=== PATIENT | male | born 1955 | race African-American/Black ===

== ENCOUNTER 2018-05-15 19:37 | Emergency (ER) | payer OTHER ==
[~2018-05-15] VITALS: Ht 182.9 cm; Wt 122.5 kg
[2018-05-15] MEDS ORDERED: AMLODIPINE BESY10 MG ORAL (19:52)
[2018-05-15 20:00] VITALS: BP 148/90
--- NOTE | 2018-05-15 20:08 | Emergency Room Report ---
History of Present Illness General Chief Complaint: Laceration Source: Patient Present Illness HPI Patient was closing door of PO vehicle (electric) when arm got caught. Leg was in path of door and was stabbed by corner. Pain 5/10 now, sharp, not radiate. Able to ambulate. H/O HTN on HCTZ, valasartin and amlodipine. Has edema of legs which is chronic. No calf tenderness. No fevers, DM, CP, dyspnea. Rode motorcycle to work. Unknown last tetanus. Osteoarthritis Allergies: Coded Allergies: No Known Allergies (Unverified , 05/15/18) Patient History Past Medical History: see triage record, other - osteoarthritis Past Surgical History: other - R knee surgeries Social History: Reports: alcohol use; Denies: smoking, drug use Social History Narrative - works for [employer] Reviewed Nursing Documentation: PMH: Agreed; PSxH: Agreed Nursing Documentation-PMH Hx Hypertension: Yes Review of Systems All Other Systems: negative except mentioned in HPI Physical Exam Vital Signs Date Time Temp Pulse Resp B/P (MAP) Pulse Ox O2 Delivery O2 Flow Rate FiO2 05/15/18 19:45 97.8 83 18 155/93 96 Room Air 97.9 Sp02 EP Interpretation: reviewed, normal General Appearance: well appearing, no apparent distress, GCS 15, non-toxic Head: normocephalic, atraumatic Eyes: bilateral eye normal inspection, bilateral eye PERRL ENT: hearing grossly normal, normal voice, moist mucus membranes Neck: full range of motion, supple Respiratory: no respiratory distress, speaking full sentences Cardiovascular #1: edema - trace - + pitting edema bilat legs Cardiovascular #2: 2+ radial (R), 2+ dorsalis pedis (L) - good cap fill Gastrointestinal: normal inspection, overweight Musculoskeletal: back normal, digits/nails normal, gait/station normal, normal range of motion, no calf tenderness, other - Plaza's tendon intact Neurologic: alert, motor strength/tone normal, sensory intact, normal gait Psychiatric: mood/affect normal Skin: laceration - L ankle Procedures Laceration/Wound Repair Laceration/Wound Repair : Consent: Verbal Wound Location: lower extremity Wound's Depth, Shape: linear Wound Length (cm): 3 Wound Explored: clean Irrigated w/ Saline (ccs): 20 Betadine Prep?: Yes Wound Debrided: minimal Wound Repaired With: sutures Suture Size/Type: 4:0, nylon Sterile Dressing Applied?: Yes Splint Applied?: No Patient Tolerated: Well Complications: None Medical Decision Making Diagnostic Impression: Primary Impression: Laceration of ankle Qualified Codes: S91.012A - Laceration without foreign body, left ankle, initial encounter Additional Impression: Edema Qualified Codes: R60.9 - Edema, unspecified ER Course Patient with laceration L ankle. Has edema (on HCTZ). Laceration repair indicated. No tendon involved. Lac clean. Given tylenol. Laceration repaired. Tolerated well. Discussed how edema might hamper wound healing. Stressed elevation of foot. Patient stable for outpatient observation and treatment. Last Vital Signs Date Time Temp Pulse Resp B/P (MAP) Pulse Ox O2 Delivery O2 Flow Rate FiO2 05/15/18 21:33 97.5 05/15/18 21:32 75 18 139/87 98 Room Air Status: improved Disposition: HOME, SELF-CARE Condition: Improved Scripts Bacitracin (Bacitracin) 28.4 Gm Oint...g. 1 APPLIC TOPIC BID, #10 GM Prov: Ruel Ellis M.D. 05/15/18 Ruel Ellis M.D. May 15, 2018 20:08
[2018-05-15] MEDS ORDERED: Tetanus/Diptheria/Pertussis Vaccine 0.5ml Syr IM ONE (20:15)
[2018-05-15] MEDS ORDERED: Lidocaine 1% MPF 10mg/ml 5ml INJ ONE (20:15)
[2018-05-15] MEDS ORDERED: Bacitracin Oint UD TOPIC ONE (20:15)
[2018-05-15] MEDS ORDERED: BACITRACIN15 GM TOPIC (21:13)
[2018-05-15 21:32] VITALS: BP_SYST 139; BP_SYST 148; BP_DIAS 87; BP_DIAS 90
== END 2018-05-15 21:35 | disposition home or self-care (01) ==
LOC: EMR 21:03
DX: S91.012A Laceration without foreign body, left ankle, initial encounter (principal); V48.3XXA Unspecified car occupant injured in noncollision transport accident in nontraffic accident, initial encounter; Y92.89 Other specified places as the place of occurrence of the external cause; Z23 Encounter for immunization; I10 Essential (primary) hypertension
CPT/HCPCS: 90471; 90715; 99283

== ENCOUNTER 2018-05-27 12:16 | Emergency (ER) | payer OTHER ==
[~2018-05-27] VITALS: Ht 188 cm; Wt 126.1 kg
[~2018-05-27 12:16] MED LIST: AMLODIPINE BESY10 MG ORAL; BACITRACIN15 GM TOPIC
--- NOTE | 2018-05-27 12:40 | Emergency Room Report ---
History of Present Illness General Chief Complaint: Wound Recheck/Suture Removal Source: Patient Present Illness HPI 63-year-old male presents for suture removal. States that he was here on May 15 for laceration to his left calf region after a sliding door hit his cause injury. States that his wound has been healing well without any current medications it is here for suture removal without any other physical complaints at this time. Allergies: Coded Allergies: No Known Allergies (Unverified , 05/15/18) Patient History Past Medical History: see triage record Past Surgical History: none Pertinent Family History: none Immunizations: UTD Reviewed Nursing Documentation: PMH: Agreed; PSxH: Agreed Nursing Documentation-PMH Past Medical History: No Stated History Hx Hypertension: Yes Review of Systems All Other Systems: negative except mentioned in HPI Physical Exam Vital Signs Date Time Temp Pulse Resp B/P (MAP) Pulse Ox O2 Delivery O2 Flow Rate FiO2 05/27/18 12:30 98.3 82 18 159/99 95 Room Air 98.2 Sp02 EP Interpretation: reviewed, normal General Appearance: no apparent distress, alert, GCS 15, non-toxic Head: normocephalic, atraumatic Eyes: bilateral eye normal inspection, bilateral eye PERRL ENT: normal ENT inspection Neck: normal inspection Respiratory: normal breath sounds, no respiratory distress Cardiovascular #1: normal capillary refill Musculoskeletal: normal inspection, gait/station normal Neurologic: alert, oriented x3, responsive, sensory intact, speech normal Psychiatric: judgement/insight normal, memory normal, mood/affect normal, no suicidal/homicidal ideation Skin: normal color, no rash, warm/dry, well hydrated, laceration - healed 3cm laceration medial left posterior ankle with 4 nylon sutures intact w/o any erythema, induration, tenderness or drainge. Medical Decision Making PA Attestation Dr. Anderson my supervising physician with whom patient management has been discussed with. Reaction to Intervention: Improved Diagnostic Impression: Primary Impression: Encounter for removal of sutures ER Course Pt. presents to the ED c/o wound check Ddx considered but are not limited to cellulitis, non-healing wound, suture removal, Vital signs: are stable, pt. is afebrile H&PE are most consistent with encounter for suture removal w/o complications ORDERS: none required at this time, the diagnosis is clinical ED INTERVENTIONS: Suture removal x 4 nylon sutures DISCHARGE: At this time pt. is stable for d/c to home. Will provide printed patient care instructions, and any necessary prescriptions. Care plan and follow up instructions have been discussed with the patient prior to discharge. Last Vital Signs Date Time Temp Pulse Resp B/P (MAP) Pulse Ox O2 Delivery O2 Flow Rate FiO2 05/27/18 12:30 98.3 82 18 159/99 95 Room Air 98.2 Status: improved Disposition: HOME, SELF-CARE Condition: Improved Patient Instructions: Suture Removal, Care After Additional Instructions: Keep wound clean and dry. Avoid sun exposure to minimize scarring. Patient advised that they can take a shower or bath, but be sure to pat the area dry with a towel afterward. Patient should come back sooner if they experience any red areas that get bigger, more swollen, have pus draining from wound, or if the site becomes more painful. Sada Rodriguez May 27, 2018 12:39
[2018-05-27 12:56] VITALS: BP 159/99
== END 2018-05-27 12:58 | disposition home or self-care (01) ==
LOC: EMR 12:46
DX: S81.812D Laceration without foreign body, left lower leg, subsequent encounter (principal); I10 Essential (primary) hypertension; Z48.02 Encounter for removal of sutures; W20.8XXD Other cause of strike by thrown, projected or falling object, subsequent encounter
CPT/HCPCS: 99281

== ENCOUNTER 2019-11-30 18:19 | Inpatient (IN) | payer OTHER ==
[~2019-11-30] VITALS: Ht 188 cm; Wt 117.9 kg
--- NOTE | 2019-11-30 18:40 | NUR ---
ED Nurse Note: Pt ambulated to ED d/t possible acid reflux since friday morning. Pt complains of abdominal pain; n/v. Placed on bed and gown. Dr. Sanders at bedside.
[2019-11-30 18:47] VITALS: BP 148/83
[2019-11-30] MEDS ORDERED: Morphine Sulfate 4mg/ml Inj (IV USE ONLY) IVP ONE (19:00)
--- NOTE | 2019-11-30 19:02 | Emergency Room Report ---
History of Present Illness General Chief Complaint: Abdominal Pain Source: Patient Present Illness HPI Patient presents with complaints of epigastric pain initially describes it as' acid reflux' Patient appears uncomfortable upon arrival Reports that he has had upper endoscopy 2 years ago Pain and discomfort is in the epigastric area reports that he has also had dark stools recently Denies any headache denies any chest pain or shortness of breath Allergies: Coded Allergies: No Known Allergies (Unverified , 05/15/18) Patient History Past Medical History: see triage record Reviewed Nursing Documentation: PMH: Agreed; PSxH: Agreed Nursing Documentation-PMH Past Medical History: No History, Except For Hx Hypertension: Yes Hx Gastrointestinal Problems: Yes - reflux Review of Systems All Other Systems: negative except mentioned in HPI Physical Exam Vital Signs Date Time Temp Pulse Resp B/P (MAP) Pulse Ox O2 Delivery O2 Flow Rate FiO2 11/30/19 18:36 99.3 97 20 148/83 (104) 98 Room Air Sp02 EP Interpretation: reviewed, normal General Appearance: mild distress - Actively nauseated Head: normocephalic, atraumatic Eyes: bilateral eye PERRL, bilateral eye EOMI ENT: hearing grossly normal, normal pharynx, TMs + canals normal, uvula midline Neck: full range of motion, supple, no meningismus, no bony tend Respiratory: lungs clear, normal breath sounds, no rhonchi, no respiratory distress, no retraction, no accessory muscle use Cardiovascular #1: normal peripheral pulses, regular rate, rhythm, no edema, no gallop, no JVD, no murmur Gastrointestinal: normal bowel sounds, non tender, soft, no mass, no organomegaly, non-distended, no guarding, no hernia, no pulsatile mass, no rebound Genitourinary: no CVA tenderness Musculoskeletal: normal inspection Neurologic: motor strength/tone normal, operator technician III-XII nml as tested, oriented x3 , sensory intact, responsive Psychiatric: mood/affect normal Skin: no rash Lymphatic: normal inspection, no adenopathy Medical Decision Making Diagnostic Impression: Primary Impression: Gastrointestinal bleeding ER Course With the history exam and presentation, multiple differentials considered, including but not limited to appendicitis, gastritis, cholecystitis, diverticulitis Other differential such as upper GI bleed entertained Patient's hemoglobin is appropriate However still remains uncomfortable nauseous and has discomfort in the epigastric area Patient is candidate for further inpatient care and GI specialty consultation Labs Test 11/30/19 18:59 White Blood Count 7.9 K/UL (4.8-10.8) Red Blood Count 4.96 M/UL (4.70-6.10) Hemoglobin 15.1 G/DL (14.2-18.0) Hematocrit 44.5 % (42.0-52.0) Mean Corpuscular Volume 90 FL (80-99) Mean Corpuscular Hemoglobin 30.5 PG (27.0-31.0) Mean Corpuscular Hemoglobin Concent 34.0 G/DL (32.0-36.0) Red Cell Distribution Width 11.4 % (11.6-14.8) Platelet Count 305 K/UL (150-450) Mean Platelet Volume 7.3 FL (6.5-10.1) Neutrophils (%) (Auto) 76.7 % (45.0-75.0) Lymphocytes (%) (Auto) 14.8 % (20.0-45.0) Monocytes (%) (Auto) 6.7 % (1.0-10.0) Eosinophils (%) (Auto) 0.3 % (0.0-3.0) Basophils (%) (Auto) 1.5 % (0.0-2.0) Sodium Level 142 MMOL/L (136-145) Potassium Level 3.4 MMOL/L (3.5-5.1) Chloride Level 103 MMOL/L (98-107) Carbon Dioxide Level 25 MMOL/L (21-32) Anion Gap 14 mmol/L (5-15) Blood Urea Nitrogen 26 mg/dL (7-18) Creatinine 1.3 MG/DL (0.55-1.30) Estimat Glomerular Filtration Rate > 60 mL/min (>60) Glucose Level 105 MG/DL (74-106) Calcium Level 9.7 MG/DL (8.5-10.1) Total Bilirubin 0.5 MG/DL (0.2-1.0) Aspartate Amino Transf (AST/SGOT) 23 U/L (15-37) Alanine Aminotransferase (ALT/SGPT) 29 U/L (12-78) Alkaline Phosphatase 60 U/L (46-116) Total Creatine Kinase 286 U/L (26-308) Troponin I 0.000 ng/mL (0.000-0.056) Total Protein 8.6 G/DL (6.4-8.2) Albumin 4.2 G/DL (3.4-5.0) Globulin 4.4 g/dL Albumin/Globulin Ratio 1.0 (1.0-2.7) Lipase 170 U/L (73-393) Rhythm Strip Diag. Results EP Interpretation: yes Rate: 77 Rhythm: NSR, no PVC's, no ectopy Chest X-Ray Diagnostic Results Chest X-Ray Diagnostic Results : Chest X-Ray Ordered: Yes # of Views/Limited/Complete: 1 View Indication: Chest Pain EP Interpretation: Yes Interpretation: no consolidation, no effusion, no pneumothorax Impression: No acute disease Electronically Signed by: Yanira Sanders DO Other X-Ray Diagnostic Results Other X-Ray Diagnostic Results : X-Ray ordered: kub # of Views/Limited Vs Complete: 1 View Indication: Pain EP Interpretation: Yes Interpretation: nonspecific bowel gas, no sbo, other - No foreign body Impression: No acute disease Electronically Signed by: Yanira Sanders DO Last Vital Signs Date Time Temp Pulse Resp B/P (MAP) Pulse Ox O2 Delivery O2 Flow Rate FiO2 11/30/19 18:47 97 20 Room Air 11/30/19 18:47 99.3 148/83 98 Status: improved Disposition: ADMITTED INPATIENT Condition: Serious Yanira Sanders DO Nov 30, 2019 19:02
--- NOTE | 2019-11-30 19:16 | NUR ---
HAND-OFF: Report given to Arnulfo Tanner RN.
[2019-11-30 19:27] LABS: BASOPHILS % (AUTO) 1.5 % (0.0-2.0); EOSINOPHILS % (AUTO) 0.3 % (0.0-3.0); HEMATOCRIT 44.5 % (42.0-52.0); HEMOGLOBIN 15.1 G/DL (14.2-18.0); LYMPHOCYTES % (AUTO) 14.8 % (20.0-45.0); MEAN CORPUSCULAR VOLUME 90 FL (80-99); MONOCYTES % (AUTO) 6.7 % (1.0-10.0); NEUTROPHILS % (AUTO) 76.7 % (45.0-75.0); PLATELET COUNT 305 K/UL (150-450); RED BLOOD COUNT 4.96 M/UL (4.70-6.10); RED CELL DISTRIBUTION WIDTH 11.4 % (11.6-14.8); WHITE BLOOD COUNT 7.9 K/UL (4.8-10.8)
[2019-11-30 19:36] LABS: ANION GAP 14 mmol/L (5-15); BLOOD UREA NITROGEN 26 mg/dL (7-18); CALCIUM 9.7 MG/DL (8.5-10.1); CARBON DIOXIDE 25 MMOL/L (21-32); CHLORIDE 103 MMOL/L (98-107); CREATININE 1.3 MG/DL (0.55-1.30); POTASSIUM 3.4 MMOL/L (3.5-5.1); SODIUM 142 MMOL/L (136-145)
[2019-11-30 19:41] LABS: ALANINE AMINOTRANSFERASE 29 U/L (12-78); ALBUMIN 4.2 G/DL (3.4-5.0); ALKALINE PHOSPHATASE 60 U/L (46-116); ASPARTATE AMINO TRANSFERASE 23 U/L (15-37); BILIRUBIN,TOTAL 0.5 MG/DL (0.2-1.0); CREATINE KINASE 286 U/L (26-308)
[2019-11-30 20:19] VITALS: BP 147/86
[2019-11-30] MEDS ORDERED: DIOVAN320 MG ORAL (20:36)
--- NOTE | 2019-11-30 21:45 | NUR ---
TRANSFER TO FLOOR: Patient transferred to [facility] via gurney accompanied by 2 rn in stable condition as ordered, per dr Wilson. Report given to Apple SMITH. Belongings and medications sent with patient
--- NOTE | 2019-11-30 23:22 | NUR ---
NURSES NOTE: Received pt from ER nurse at approximately 2150. No outward s/s of distress noted. Breathing pattern is even and unlabored on room air. Admission head to toe assessment performed. Call placed for admission orders. Iv L hand 22 gauge is patent and flushing without incident. No fluids orders- hep locked. Pt oriented to room amenities and use of call light for assistance. All due meds will be given. Bed at lowest level, call light within reach, patient will continue to be monitored.
[2019-12-01 04:00] VITALS: BP 134/86
[2019-12-01 06:53] LABS: ALANINE AMINOTRANSFERASE 25 U/L (12-78); ALBUMIN 3.7 G/DL (3.4-5.0); ALBUMIN/GLOBULIN RATIO 0.9 (1.0-2.7); ALKALINE PHOSPHATASE 55 U/L (46-116); ANION GAP 9 mmol/L (5-15); ASPARTATE AMINO TRANSFERASE 20 U/L (15-37); BILIRUBIN,TOTAL 0.6 MG/DL (0.2-1.0); BLOOD UREA NITROGEN 18 mg/dL (7-18); CALCIUM 9.4 MG/DL (8.5-10.1); CARBON DIOXIDE 29 MMOL/L (21-32); CHLORIDE 104 MMOL/L (98-107); CREATININE 1.1 MG/DL (0.55-1.30); POTASSIUM 3.5 MMOL/L (3.5-5.1); SODIUM 142 MMOL/L (136-145)
[2019-12-01 08:00] VITALS: BP 116/52
--- NOTE | 2019-12-01 08:09 | NUR ---
HAND OFF: Report given to LUIS Kaplancharge manager. Patient in stable condition.
--- NOTE | 2019-12-01 09:00 | NUR ---
NURSE NOTES: Patient is in bed awake and able to verbalize needs. Stable. Denies pain or SOB. Patient instructed to use call light for assistance, verbalized understanding. Patient is in bed in locked and lowest position with call light within reach. All safety measures provided. Will continue to monitor.
[2019-12-01 10:19] LABS: BASOPHILS % (AUTO) 1.3 % (0.0-2.0); EOSINOPHILS % (AUTO) 0.2 % (0.0-3.0); HEMATOCRIT 42.6 % (42.0-52.0); HEMOGLOBIN 14.4 G/DL (14.2-18.0); LYMPHOCYTES % (AUTO) 28.5 % (20.0-45.0); MEAN CORPUSCULAR VOLUME 90 FL (80-99); MONOCYTES % (AUTO) 10.6 % (1.0-10.0); NEUTROPHILS % (AUTO) 59.4 % (45.0-75.0); PLATELET COUNT 309 K/UL (150-450); RED BLOOD COUNT 4.75 M/UL (4.70-6.10); RED CELL DISTRIBUTION WIDTH 11.5 % (11.6-14.8); WHITE BLOOD COUNT 9.4 K/UL (4.8-10.8)
--- NOTE | 2019-12-01 11:54 | Diagnostic Imaging Report ---
Indication: Abdominal pain Comparison: None Single view of the abdomen obtained Findings: Bowel gas pattern is nonspecific. No mass, ectopic calcifications, or abnormal gas collections are identified. Multilevel thoracic and lumbar endplate enthesophyte formation demonstrated. Impression: No acute findings
--- NOTE | 2019-12-01 11:58 | Diagnostic Imaging Report ---
Indication: Dyspnea Comparison: None A single view chest radiograph was obtained. Findings: Cardiomediastinal appearance is within normal limits for age. The lungs are clear. Pulmonary vascularity is appropriate. The diaphragmatic contour is smooth and costophrenic angles are sharp. No pleural effusions are identified. Multilevel spinal enthesophytes noted. Impression: No acute findings
[2019-12-01 12:00] VITALS: BP 120/60
--- NOTE | 2019-12-01 13:31 | NUR ---
*-* INSURANCE *-* ALL AVAILABLE CLINICALS HAVE BEEN FAXED TO: ERNESTO EARLY:RADHA F: [phone] CASE# [id number]
--- NOTE | 2019-12-01 15:15 | Consultation ---
DATE OF CONSULTATION: 12/01/2019 GASTROENTEROLOGY CONSULTATION CONSULTING PHYSICIAN: Tanya Hopkins M.D. CHIEF COMPLAINT: I was asked to see this patient by Dr. Yanira Wilson for evaluation of vomiting and possible gastrointestinal bleeding. HISTORY OF PRESENT ILLNESS: The patient is a pleasant 64-year-old man who comes into the hospital with one-day history of severe vomiting and some dark emesis and dark stools. He has not had an endoscopy before, but he has had a colonoscopy about 2 years ago. He normally takes Protonix on a long-term basis for acid reflux. The last time he had a similar bout of emesis was about 7 or 8 months ago. He is typically reasonably healthy and has a minor set of medical problems, which are outlined below. PAST MEDICAL HISTORY: History of hypertension, which is being controlled with medications. FAMILY HISTORY: Positive for breast cancer in mother. SOCIAL HISTORY: The patient is and has 3 children. He smokes cigars and drinks whiskey intermittently. REVIEW OF SYSTEMS: Otherwise negative. PHYSICAL EXAMINATION: GENERAL: A pleasant, obese man seen in his room, in no distress. HEENT: Normocephalic and atraumatic. Sclerae anicteric. Oropharynx clear. NECK: Supple. CHEST: Clear to auscultation. CARDIOVASCULAR: Revealed a regular rate. ABDOMEN: Soft and nontender with good bowel sounds. There is no organomegaly or masses. EXTREMITIES: Revealed no edema. LABORATORY DATA: Noted. ASSESSMENT: This patient presents with nausea and vomiting with dark emesis and also dark stools, which is suggestive of gastrointestinal bleeding. However, the patient's hematocrit is relatively preserved and therefore major bleeding is not suspected. He should undergo an endoscopy to evaluate the upper GI tract to provide direction and clearance for discharge. The indications, risks, alternatives, and possible complications of endoscopy were explained and informed consent was obtained. RECOMMENDATIONS: 1. PO diet as tolerated. 2. Proton pump inhibitor. 3. NPO after midnight. 4. Follow CBC. 5. Endoscopy tomorrow. Thank you for asking me to participate in the care of this patient. Tanya Hopkins M.D. DR: ANTONIO JOB#: [id number] CC:
[2019-12-01 15:27] LABS: APPEARANCE,URINE CLEAR; BILIRUBIN, URINE NEGATIVE (NEGATIVE); GLUCOSE, URINE (UA) NEGATIVE (NEGATIVE); KETONES,URINE 1+ (NEGATIVE); LEUKOCYTE ESTERASE ,URINE 1+ (NEGATIVE); NITRITE,URINE NEGATIVE (NEGATIVE); PH,URINE 6 (4.5-8.0); PROTEIN,URINE 1+ (NEGATIVE); UROBILINOGEN,URINE 4 MG/DL (0.0-1.0)
[2019-12-01 15:31] LABS: COLOR,URINE YELLOW
[2019-12-01 16:00] VITALS: BP 146/79
--- NOTE | 2019-12-01 19:38 | NUR ---
HAND-OFF: Report given to Bharti SMITH. Patient is stable.
[2019-12-01 20:00] VITALS: BP 117/73
--- NOTE | 2019-12-01 20:14 | NUR ---
NURSES NOTE: Pt in bed, A/OX4, able to express all needs. Denies pain at this time. Breathing is even and unlabored. No acute distress noted. All due medications will be given. Call light within reach. Bed at lowest level. Pt will continue to be monitored
--- NOTE | 2019-12-01 23:45 | History and Physical Report ---
DATE OF ADMISSION: 11/30/2019 HISTORY OF PRESENT ILLNESS: The patient is admitted for gastrointestinal bleed. The patient has severe reflux. Has been having dark stool and black stool for the past couple of days and coughing also for past couple of days. The patient denies nausea, vomiting, or diarrhea. Denies history of ulcer disease. Denies shortness of breath. Denies chills. PAST MEDICAL HISTORY: Hypertension. PAST SURGICAL HISTORY: Right knee surgery. SOCIAL HISTORY: History of smoking. Denies history of drug abuse. Denies history of alcohol abuse. ALLERGIES: No known allergies. MEDICATIONS: Amlodipine, olmesartan, valsartan. FAMILY HISTORY: Noncontributory. REVIEW OF SYSTEMS: HEENT: Denies headaches. RESPIRATORY: Denies shortness of breath. Reports cough for past couple of days. No wheezing. CARDIOVASCULAR: Denies chest pain. No orthopnea. GASTROINTESTINAL: Reports heartburn and black stools for the past couple of days. EXTREMITIES: Denies pain in lower extremities. CENTRAL NERVOUS SYSTEM: Denies change in speech pattern. Feels weak. PHYSICAL EXAMINATION: VITAL SIGNS: Temperature is 98.6, pulse is 90, blood pressure 134/86. HEENT: PERRLA. NECK: Supple. No lymphadenopathy. CHEST: Clear to auscultation. CARDIOVASCULAR: Regular rate and rhythm. No murmurs or extra sounds. GASTROINTESTINAL: Soft, nontender, nondistended. No organomegaly. Abdomen is soft. Positive bowel sounds. EXTREMITIES: No edema. Moves all four extremities. Sensory intact to light touch. Reflexes equal in both sides. LABORATORY DATA: WBC of 7.9, hemoglobin of 15.1, and platelets of 305. Sodium 142, potassium 3.4, BUN of 26, and creatinine 1.3. ASSESSMENT AND PLAN: GI bleed and hypokalemia. I have asked Dr. Hopkins and Dr. Schroeder to see the patient for the management of hypokalemia and the management of the diagnosis and treatment of the symptoms of GI bleed. Yanira Wilson M.D. DR: NAYAN JOB#: [id number] CC:
[2019-12-02] VITALS (8 sets, daily range): BP systolic 115–131; BP diastolic 76–90
[2019-12-02] MEDS ORDERED: LR 1000ml ONE ×2 (08:00→13:00)
[2019-12-02] MEDS ORDERED: Propofol 200mg/20ml IV ONE (08:00)
--- NOTE | 2019-12-02 08:00 | NUR ---
NURSE NOTES: Patient awake and alert and oriented,respirations unlabored.Patient NPO for procedure today. Call light within reach.
[2019-12-02] MEDS ORDERED: Lidocaine 1% Plain 30 ml INJ ONE (08:01)
[2019-12-02] MEDS ORDERED: NS 500ML IVPB ONE (08:12)
--- NOTE | 2019-12-02 08:13 | Pre-Procedure Note/Attestation ---
Pre-Procedure Note/Attestation Complete Prior to Procedure Planned Procedure: not applicable Procedure Narrative: egd Indications for Procedure Pre-Operative Diagnosis: ugib Attestation I attest that I discussed the nature of the procedure; its benefits; risks and complications; and alternatives (and the risks and benefits of such alternatives ), prior to the procedure, with the patient (or the patient's legal sales training representative). I attest that, if there was a reasonable possibility of needing a blood transfusion, the patient (or the patient's legal sales training representative) was given the [facility] standardized written summary, pursuant to the [place] Blood Safety Act ([place] Health and Safety Code # 1645, as amended). I attest that I re-evaluated the patient just prior to the surgery and that there has been no change in the patient's H&P, except as documented below: Tanya Hopkins MD Dec 02, 2019 08:13
--- NOTE | 2019-12-02 08:13 | General Progress Note ---
Assessment/Plan Assessment/Plan: Assessment - Dark emesis, possible GIB - stable H&H - Obesity Recommendations - NPO - PPI - EGD today Subjective Allergies: Coded Allergies: No Known Allergies (Unverified , 05/15/18) Subjective No events overnight no BM Objective Last 24 Hour Vital Signs Date Time Temp Pulse Resp B/P (MAP) Pulse Ox O2 Delivery O2 Flow Rate FiO2 12/01/19 21:00 Room Air 12/01/19 20:00 98.4 83 17 117/73 (88) 96 12/01/19 16:00 98.3 18 146/79 (101) 96 12/01/19 12:00 98.6 90 20 120/60 (80) 94 12/01/19 09:00 Room Air 12/01/19 09:00 92 116/52 Intake and Output 12/01/19 12/02/19 19:00 07:00 Intake Total 300 ml Balance 300 ml Intake Oral 300 ml # Voids 2 3 # Bowel Movements 1 Laboratory Tests 12/01/19 14:54: Stool Occult Blood [Pending] 12/01/19 14:55: Urine Color Yellow, Urine Appearance Clear, Urine pH 6, Urine Specific Twilight 1.020, Urine Protein 1+H, Urine Glucose (UA) Negative, Urine Ketones 1+H, Urine Blood Negative, Urine Nitrite Negative, Urine Bilirubin Negative, Urine Urobilinogen 4H, Urine Leukocyte Esterase 1+H, Urine RBC 0-2H, Urine WBC 2-4, Urine Squamous Epithelial Cells None, Urine Bacteria Few Height (Feet): 6 Height (Inches): 2.00 Weight (Pounds): 260 Objective WDWN CTA RRR abd soft no edema Tanya Hopkins MD Dec 02, 2019 08:13
--- NOTE | 2019-12-02 08:19 | NUR ---
HAND OFF: Report given to LUIS Nassar.
[2019-12-02] MEDS ORDERED: LR 1000ml 1,000 ML IVLG SCH (08:23)
[2019-12-02] MEDS ORDERED: Ketorolac 30mg Inj IV PRN ×2 (08:30)
[2019-12-02] MEDS ORDERED: LORazepam Inj 2mg/ml 1ml IV PRN (08:30)
[2019-12-02] MEDS ORDERED: Hydromorphone 0.5mg/0.5ml inj IVP PRN (08:30)
[2019-12-02] MEDS ORDERED: Atropine Sulfate 0.4mg/ml inj IVP PRN (08:30)
[2019-12-02] MEDS ORDERED: DiphenhydrAMINE 50mg/ml Inj IVP PRN (08:30)
[2019-12-02] MEDS ORDERED: oxyCODONE HCL/Acetaminophen 5/325mg ORAL PRN (08:30)
[2019-12-02] MEDS ORDERED: Meperidine 25mg/0.5ml Inj (FOR RIGORS ONLY) IV PRN (08:30)
[2019-12-02] MEDS ORDERED: HYDROcodone/Acetamin 5/325 tab ORAL PRN (08:30)
[2019-12-02] MEDS ORDERED: fentaNYL 100 mcg/2 mL IV PRN (08:30)
[2019-12-02] MEDS ORDERED: Midazolam 2mg/2ml Inj IVP PRN (08:30)
[2019-12-02] MEDS ORDERED: HYDROcodone/Acetamin 7.5/325 tab ORAL PRN (08:30)
[2019-12-02] MEDS ORDERED: Metoclopramide 10mg/2ml Inj IVP PRN (08:30)
--- NOTE | 2019-12-02 08:32 | Endoscopy Procedure Note ---
Endoscopy Procedure Note General Indication for Procedure: UGIB Procedures Performed: EGD Operative Findings/Diagnosis: Zenker's divertic with food residual, 6 cm HH with slight ring, mild stephanie Specimen: yes Pt Tolerated Procedure Well: Yes Estimated Blood Loss: none Anesthesia Anesthesiologist: Shiraz Anesthesia: MAC Medications Medication Given: see anesthesia record Inserted Devices Implant(s) used?: No GI Core Measures 50 yrs or older w/o bx or poly: Not Applicable 10yrs. F/U recommended: Not Applicable Tanya Hopkins MD Dec 02, 2019 08:32
--- NOTE | 2019-12-02 08:35 | Brief Operative Note ---
Immediate Post Operative Note Operative Note Chief Complaint: UGIB Pre-op Diagnosis: ugib Procedure: GED, Bx Post-op Diagnosis: stephanie, HH Philippek Surgeon: epte Anesthesiologist: Kishan Bragg Anesthesia: MAC Specimen: yes Complications: none Condition: stable Fluids: per aneshesia Implant(s) used?: No Tanya Hopkins MD Dec 02, 2019 08:35
--- NOTE | 2019-12-02 08:38 | Anethesia Preoperative Eval ---
Anesthesia Pre-op PMH/ROS General Date of Evaluation: Dec 02, 2019 Time of Evaluation: 07:54 Anesthesiologist: Shiraz ASA Score: ASA 3 Mallampati Score Class I : Soft palate, uvula, fauces, pillars visible Class II: Soft palate, uvula, fauces visible Class III: Soft palate, base of uvula visible Class IV: Only hard plate visible Mallampati Classification: Class III Surgeon: Sandeep Diagnosis: Hematocheizia Surgical Procedure: EGD Anesthesia History: none Family History: no anesthesia problems Allergies: Coded Allergies: No Known Allergies (Unverified , 05/15/18) Medications: see eMAR Patient NPO?: Yes Past Medical History Cardiovascular: Reports: HTN Gastrointestinal/Genitourinary: Reports: GERD Other: obesity - BMI 33 Anesthesia Pre-op Phys. Exam Physician Exam Last Vital Signs Date Time Temp Pulse Resp B/P (MAP) Pulse Ox O2 Delivery O2 Flow Rate FiO2 12/01/19 21:00 Room Air 12/01/19 20:00 98.4 83 17 117/73 (88) 96 Constitutional: NAD Neurologic: CN 2-12 intact Cardiovascular: RRR Respiratory: CTA Gastrointestinal: S/NT/ND Airway Exam Mallampati Score: Class III MO: limited ROM: limited Teeth: intact Anesthesia Pre-op A/P Risk Assessment & Plan Assessment: ASA 3 Plan: TIVA Status Change Before Surgery: Jarrod Solomon MD Dec 02, 2019 08:38
--- NOTE | 2019-12-02 08:39 | Immediate Post-Op Evaluation ---
Immediate Post-Op Evalulation Immediate Post-Op Evalulation Procedure: EGD Date of Evaluation: Dec 02, 2019 Time of Evaluation: 08:57 IV Fluids: 300 LR Blood Products: 0 Estimated Blood Loss: 1 Urinary Output: 0 Blood Pressure Systolic: 117 Blood Pressure Diastolic: 83 Pulse Rate: 90 Respiratory Rate: 16 O2 Sat by Pulse Oximetry: 100 Temperature (Fahrenheit): 97.7 Pain Score (1-10): 1 Nausea: No Vomiting: No Complications 0 Patient Status: awake, reacts, patent, none Hydration Status: adequate Jarrod Weldon MD Dec 02, 2019 08:39
--- NOTE | 2019-12-02 08:40 | 48 Hour Post Anesthesia Eval ---
Post Anesthesia Evaluation Procedure: EGD Date of Evaluation: Dec 02, 2019 Time of Evaluation: 11:07 Blood Pressure Systolic: 123 0: 72 Pulse Rate: 81 Respiratory Rate: 18 Temperature (Fahrenheit): 98 O2 Sat by Pulse Oximetry: 98 Airway: patent Nausea: No Vomiting: No Pain Intensity: 1 Hydration Status: adequate Cardiopulmonary Status: Stable Mental Status/LOC: patient returned to baseline Follow-up Care/Observations: 0 Post-Anesthesia Complications: 0 Follow-up care needed: ready to discharge Jarrod Weldon MD Dec 02, 2019 08:40
--- NOTE | 2019-12-02 10:35 | General Progress Note ---
Assessment/Plan Problem List: (1) Edema ICD Codes: R60.9 - Edema, unspecified SNOMED: 485157239, [id number] (2) Gastrointestinal bleeding ICD Codes: K92.2 - Gastrointestinal hemorrhage, unspecified SNOMED: [id number] Status: progressing Assessment/Plan: gi bleed endoscopy per gi h/h is stable will dc once cleared by consultants moniter for gi bleeding Subjective ROS Limited/Unobtainable: Yes Allergies: Coded Allergies: No Known Allergies (Unverified , 05/15/18) Objective Last 24 Hour Vital Signs Date Time Temp Pulse Resp B/P (MAP) Pulse Ox O2 Delivery O2 Flow Rate FiO2 12/02/19 10:14 82 124/86 12/02/19 09:03 97.9 86 16 117/77 100 Room Air 12/02/19 08:53 85 22 125/90 100 Room Air 12/02/19 08:51 81 18 98 12/02/19 08:49 90 16 100 12/02/19 08:48 88 17 130/89 98 Room Air 12/02/19 08:43 97.3 92 18 115/82 100 Simple Mask 6 12/01/19 21:00 Room Air 12/01/19 20:00 98.4 83 17 117/73 (88) 96 12/01/19 16:00 98.3 18 146/79 (101) 96 12/01/19 12:00 98.6 90 20 120/60 (80) 94 Intake and Output 12/01/19 12/02/19 19:00 07:00 Intake Total 300 ml Balance 300 ml Intake Oral 300 ml # Voids 2 3 # Bowel Movements 1 Laboratory Tests 12/01/19 14:54: Stool Occult Blood [Pending] 12/01/19 14:55: Urine Color Yellow, Urine Appearance Clear, Urine pH 6, Urine Specific Preston 1.020, Urine Protein 1+H, Urine Glucose (UA) Negative, Urine Ketones 1+H, Urine Blood Negative, Urine Nitrite Negative, Urine Bilirubin Negative, Urine Urobilinogen 4H, Urine Leukocyte Esterase 1+H, Urine RBC 0-2H, Urine WBC 2-4, Urine Squamous Epithelial Cells None, Urine Bacteria Few Height (Feet): 6 Height (Inches): 2.00 Weight (Pounds): 260 Cardiovascular: normal rate Respiratory/Chest: lungs clear Yanira Wilson MD Dec 02, 2019 10:35
[2019-12-02] MEDS ORDERED: Neostigmine 1mg/ml 10ml Inj ONE (13:00)
[2019-12-02] MEDS ORDERED: Sterile Water Irrig 1000ml IRRIG ONE (13:00)
[2019-12-02] MEDS ORDERED: Rocuronium Bromide 50mg/5ml Inj IV ONE (13:00)
[2019-12-02] MEDS ORDERED: NS Irrig 1000ml ONE (13:00)
--- NOTE | 2019-12-02 16:00 | Procedure Note ---
DATE OF PROCEDURE: 12/02/2019 GASTROENTEROLOGY PROCEDURE REPORT PROCEDURE: Upper gastrointestinal endoscopy with biopsy. SURGEON: Tanya Hopkins M.D. ANESTHESIA: Please see the separate anesthesiologist notes by Dr. Jarrod Weldon. PRE-ENDOSCOPIC DIAGNOSIS: Dark emesis, presumed gastrointestinal bleeding. POST-ENDOSCOPIC DIAGNOSES: 1. 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 2. A 6 cm hiatal hernia with a slight ring-like effect at the esophageal junction suggestive of longstanding reflux. 3. Mild gastritis, status post biopsy of the antrum. DESCRIPTION OF PROCEDURE: The procedure, its risks, indications, alternatives, and possible complications were explained to the patient and informed consent was obtained. The patient was then sedated in the left lateral decubitus position and a diagnostic upper endoscope was introduced through oropharynx and advanced to the duodenum. The endoscope was then gradually withdrawn and mucosa examined carefully. Findings are as listed above. There was no evidence of active bleeding or ulcers in the upper GI tract. The biopsies of the antrum were sent to pathology for review. The endoscope was removed. The patient was sent to recovery in good condition. COMPLICATIONS: None. ASSESSMENT: The endoscopic examination today was notable for 6 cm hiatal hernia with a ring like effect of the mucosa above it suggestive of longstanding reflux. The patient will need to be on long-standing acid suppression. He does appear to have a Zenker's diverticulum on endoscopy, but an esophagram can be done to the document this and also to use it for baseline radiologic evaluation should his problem progress. His diet can be restarted and discharge planning can be made . He does have some mild gastritis and biopsies of the antrum will be reviewed. Consideration can be made to treat Helicobacter pylori if positive. RECOMMENDATIONS: Per above discussion and per orders in the chart. Thank you for asking me to participate in the care of this patient. Tanya Hopkins M.D. DR: ANTONIO JOB#: [id number] CC: DIANE
--- NOTE | 2019-12-02 16:57 | NUR ---
CASE MANAGEMENT:INITIAL REVIEW 64 YR OLD MALE FROM HOME CC;ABDOMINAL PAIN SI;GI BLEED 99.3 97 20 184/103 98% ON RA K+ 3.4 BUN 26 UA+ PROTEIN, KETONES, UROBILI, LEUKOCYTE, RBC STOOL OB-NEGATIVE IS;MORPHINE IV ONE ZOFRAN IV ONCE IVF NS BOLUS CXR- NEGATIVE ABDOMINAL [id number] ADMITTED TO MED SURG MED SURG STATUS DCP;FROM HOME
--- NOTE | 2019-12-02 18:30 | NUR ---
NURSE NOTES: Patient resting no complaints at this time,call light within reach.
--- NOTE | 2019-12-02 19:32 | NUR ---
NURSE NOTES: Received patient on bed, awake and verbally responsive. with visitors on the bedside. denies any pain or discomfort. no sob. able to ambulate to the bathroon, with steady gait. reiterated to ask or call for assistance.patient is capable to use the call light. with iv line on the left hand ,saline lock. bed locked and light button within easy reach. will continue plan of care.
--- NOTE | 2019-12-02 19:40 | NUR ---
HAND-OFF: Report given to Idalmis SMITH.
--- NOTE | 2019-12-03 01:30 | NUR ---
NURSE NOTES: patient is sleeping comfortably on bed, no sob. bed locked and in lowest position. call light and light button within easy reach. will continue plan of care.
--- NOTE | 2019-12-03 07:30 | NUR ---
NURSE NOTES: Received report from Ana Raygoza RN. Patient A&Ox4. On room air, no signs of distress or labored breathing. IV intact, patent, and saline locked. Bed in lowest position with call light in reach. Will continue with plan of care.
--- NOTE | 2019-12-03 07:37 | NUR ---
HAND-OFF: Report given to tete moran.
[2019-12-03 08:00] VITALS: BP 146/86
[2019-12-03 08:53] VITALS: BP 146/86
--- NOTE | 2019-12-03 10:32 | NUR ---
*-* INSURANCE *-* ALL AVAILABLE CLINICALS HAVE BEEN FAXED TO: ERNESTO EARLY:RADHA F: [phone] CASE# [id number]
--- NOTE | 2019-12-03 11:49 | NUR ---
NURSE NOTES: Patient discharged home. Discharge protocol followed.
--- NOTE | 2019-12-03 21:38 | General Progress Note ---
Assessment/Plan Status: progressing Assessment/Plan: Assessment - Dark emesis - resolved - stable H&H - Obesity Recommendations - push po - nursing home H2B - d/c planning - outpatient f/u Subjective Allergies: Coded Allergies: No Known Allergies (Unverified , 05/15/18) All Systems: reviewed and negative except above Subjective No events overnight no BM d/w patient re results Objective Last 24 Hour Vital Signs Date Time Temp Pulse Resp B/P (MAP) Pulse Ox O2 Delivery O2 Flow Rate FiO2 12/03/19 09:00 Room Air 12/03/19 08:53 88 146/86 12/03/19 08:00 97.5 88 20 146/86 (106) 98 Intake and Output 12/02/19 12/03/19 19:00 07:00 Intake Total 450 ml 200 ml Balance 450 ml 200 ml Intake Oral 200 ml IV Total 450 ml # Voids 2 Height (Feet): 6 Height (Inches): 2.00 Weight (Pounds): 260 Objective WDWN CTA RRR abd soft no edema Tanya Hopkins MD Dec 03, 2019 21:38
--- NOTE | 2019-12-05 10:13 | Discharge Summary ---
Discharge Summary Discharge Summary _ DATE OF ADMISSION: 11/30/2019 DATE OF DISCHARGE: 12/03/2019 DISCHARGED BY: Dr. Yanira Armstrong CONSULTANTS: Dr. Tanya Hopkins BRIEF HOSPITAL COURSE: The patient is a 64-year-old male, who presented to ED with complaints of epigastric pain. Patient reported he had upper endoscopy 2 years ago. He describes pain and discomfort in the epigastric area and reported had dark stools recently. He denies any headache. Denied chest pain or shortness of breath. Upon evaluation at ED, blood work did not show any leukocytosis. Hemoglobin and hematocrit normal. Patient remained uncomfortable, nauseous and has discomfort in the epigastric area. EKG was in normal sinus rhythm. Chest x- ray did not show any acute disease. KUB showed nonspecific bowel gas. No SBO. Patient was then admitted for evaluation of GI bleed. GI was consulted. Patient normally takes Protonix on long-term basis for acid reflux. He was continued on proton pump inhibitors. On 12/02/2019, he underwent upper GI endoscopy with biopsy. 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 6 cm hiatal hernia with slight ring effect at the esophageal junction suggestive of longstanding reflux. Mild gastritis. There was no evidence of active bleeding or ulcers in the upper GI tract. He tolerated procedure well. Diet was advanced. He had stable H&H. He was cleared for discharge home to follow-up as outpatient. FINAL DIAGNOSES: Possible GI bleed with stable H&H Obesity Edema DISPOSITION: Patient was discharged home. DISCHARGE MEDICATIONS: Refer to Discharge Medication List. DISCHARGE INSTRUCTIONS: Follow-up in a week. I have been assigned to complete a discharge summary on this account, I was not involved with the patient's management.--JAYSON Perkins Jacqueline Robles NP Dec 05, 2019 10:13
--- NOTE | 2019-12-06 15:35 | NUR ---
*-* INSURANCE *-* DISCHARGE SUMMARY HAS BEEN FAXED TO; ERNESTO EARLY:RADHA F: [phone] CASE# [id number]
== END 2019-12-03 11:35 | disposition home or self-care (01) | DRG 379 ==
LOC: EMR 19:48 → 3E 20:10 → EDBEDREQ 20:49 → SDSOVERFLO 12-02 10:20 → 3E 12-02 10:22
PROC: 0DB78ZX Excision of Stomach, Pylorus, Via Natural or Artificial Opening Endoscopic, Diagnostic (ICD-10-PCS; principal; 2019-12-02 08:18)
DX: K29.71 Gastritis, unspecified, with bleeding (principal); R10.9 Unspecified abdominal pain; E87.6 Hypokalemia; E66.9 Obesity, unspecified; Z68.33 Body mass index [BMI] 33.0-33.9, adult; I10 Essential (primary) hypertension; K22.5 Diverticulum of esophagus, acquired; K44.9 Diaphragmatic hernia without obstruction or gangrene; K29.70 Gastritis, unspecified, without bleeding
CPT/HCPCS: 36415; 71045; 74018; 80053; 81001; 82270; 82550; 83690; 84484; 85025; 93005; 94003; 94150; 96374; 96375; 99285; J2405; J2710